=== PATIENT | female | born 1955 | race Caucasian/White ===

== ENCOUNTER → 2022-08-15 | Outpatient (CLI) | payer MEDICARE, SELFPAY ==
--- NOTE | 2022-08-15 08:59 | ECHOD_ITS ---
Reason For Study: Retinal Artery Occlusion Procedure This was a 2D Doppler, Color Flow transthoracic echocardiogram. Exam performed in department. Left Ventricle Mild concentric left ventricular hypertrophy. The left ventricular ejection fraction is 65 %. Right Ventricle Normal right ventricle. Atria The left and right atria are normal. Bubble contrast study negative for right to left interatrial shunt. Mitral Valve Mild diffuse mitral valve thickening. Tricuspid Valve Trivial tricuspid valve insufficiency. Aortic Valve Normal aortic valve. Pulmonic Valve The pulmonic valve is not well visualized. Great Vessels Normal sized aortic root. Pericardium/Pleural No pericardial effusion. Medication 20 gauge I.V. with prn adaptor inserted into right arm. Performed a rapid injection of agitated mix of 9 cc saline and 1cc air to assess for atrial septal defect. MMode/2D Measurements & Calculations LVIDd: 4.0 cm IVSd: 1.1 cm Ao root diam: 3.7 cm LVIDs: 2.7 cm LVPWd: 1.1 cm LA dimension: 3.3 cm RVDd: 3.4 cm FS: 31.3 % LAV(MOD-bp): 42.3 ml LA A4 area: 14.5 cm2 RA A4 area: 14.5 cm2 LAV(MOD-bp) Indexed: 22.3 ml/m2 LAV(MOD-sp2): 49.5 ml LAV(MOD-sp4): 34.9 ml Time Measurements MV dec time: 0.25 sec Doppler Measurements & Calculations MV E max noah: 50.9 cm/sec Lat Peak E' Noah: 11.3 cm/sec Med Peak E' Noah: 9.7 cm/sec MV A max noah: 89.2 cm/sec E/E' lat: 4.5 E/E' med: 5.3 MV E/A: 0.57 MV V2 max: 101.4 cm/sec MV P1/2t max noah: 58.7 cm/sec Ao V2 max: 121.5 cm/sec MV max P.1 mmHg MV P1/2t: 84.9 msec Ao max P.1 mmHg MV V2 mean: 53.5 cm/sec MV dec slope: 202.4 cm/sec2 Ao V2 mean: 78.9 cm/sec MV mean P.3 mmHg Ao mean P.7 mmHg MV V2 VTI: 18.4 cm MVA(P1/2t): 2.6 cm2 Ao V2 VTI: 24.8 cm LV V1 max: 131.9 cm/sec LV V1 max P.0 mmHg ECHO/Echo Complete Interpretation Summary The left ventricular ejection fraction is 65 %. Mild concentric left ventricular hypertrophy. Bubble contrast study negative for right to left interatrial shunt. Mild diffuse mitral valve thickening. Ordering Physician: Antelmo Gross Referring Physician: Antelmo Gross Performed By: Francisco Killian RCS
--- NOTE | 2022-08-15 08:59 | CDU_ITS ---
Reason For Study: Retinal artery occlusion Rt. Velocities/BP Lt. Velocities/BP Prox CCA 64.5/15.4 cm/sec. Prox CCA 62.2/11.6 cm/sec. Mid CCA 55.1/13.5 cm/sec. Mid CCA 70.9/15.1 cm/sec. Dist CCA 49.4/12.6 cm/sec. Dist CCA 60.4/18.6 cm/sec. Prox ICA 40.9/6 cm/sec. Prox ICA 38.6/11.6 cm/sec. Mid ICA 34.3/13.3 cm/sec. Mid ICA 55.2/22.1 cm/sec. Dist ICA 77.9/25.6 cm/sec. Dist ICA 67.4/25.6 cm/sec. Rt. ICA/CCA = 1.41. Lt. ICA/CCA = 1.08. Prox ECA 70.2 cm/sec. Prox ECA 65.7/11.6 cm/sec. Rt. Vert. 56.1/17.7 cm/sec. Lt. Vert. 36.9/9 cm/sec. Right Extracranial There is intimal thickening but no significant atherosclerotic plaque noted in the right common carotid artery. There is heterogeneous, irregular atherosclerotic plaque noted in the right internal carotid artery. The atherosclerotic plaque causes acoustic shadowing. There is heterogeneous, irregular atherosclerotic plaque noted in the right external carotid artery. Antegrade flow is noted in the right vertebral artery. Left Extracranial There is homogeneous, smooth atherosclerotic plaque noted in the left common carotid artery. There is heterogeneous, irregular atherosclerotic plaque noted in the left internal carotid artery. There is heterogeneous, irregular atherosclerotic plaque noted in the left external carotid artery. Antegrade flow is noted in the left vertebral artery. Procedure Carotid Duplex [id number]. This is a Carotid Duplex examination using B-mode, color flow and specral Doppler. Exam performed in department. VL/Carotid Duplex Ultrasound Interpretation Summary Mild (<50%) stenosis right extracranial internal carotid. Calcification within the proximal right internal carotid artery causes acoustic shadowing, which obscures visualization of a portion of the arterial lumen. Thus, the degree of stenosis may exceed that which is indicated by velocity criteria alone. In this regard, clinical correlation is advised and an alternative imagi ng modality may be helpful. Mild (<50%) stenosis left extracranial internal carotid. Flow within t he vertebral arteries is antegrade bilaterally. Ordering Physician: Antelmo Gross Referring Physician: Dian Tang Performed By: Mary Laurent RVT
== END | disposition home or self-care (01) ==
LOC: CVS 08:56
PROVIDERS: PCP Nurse Practitioner Adult Health; Referring Provider Ophthalmology; Visit Provider Ophthalmology
DX: H34.01 Transient retinal artery occlusion, right eye (principal)
CPT/HCPCS: 93306; 93880; A4216